=== PATIENT | female | born 1985 | race Caucasian/White ===

== ENCOUNTER 2022-11-02 17:40 | Emergency (ER) | payer OTHER, SELFPAY ==
[2022-11-02 17:46] VITALS: BP 119/75; PULSE 96; RESP 16; TEMP 36.8; O2SAT 99; BMI 32.0
--- NOTE | 2022-11-02 17:57 | CT_ITS ---
[address] [address] Patient Name: INES SKELTON MRN: [id number] date: 1985 Sex: F Assigned Patient Location: ER Current Patient Location: ER Accession/Order Number: [id number] Exam Date: 11/02/2022 18:27 Report Date: 11/02/2022 19:43 At the request of: IRIS ARTEAGA Procedure: CT abdomen pelvis w con EXAM: CT abdomen pelvis w con HISTORY: Right-sided abdominal pain. COMPARISON: 06/04/2015. TECHNIQUE: Enhanced helical acquisition obtained through the abdomen and the pelvis. FINDINGS: The visualized lung bases and pleural spaces are clear. Prior cholecystectomy. No significant biliary ductal dilatation. The liver, spleen, pancreas and the adrenal glands are unremarkable. No enlarged lymph nodes identified within the abdomen or the pelvis. Mild dilatation of the proximal two thirds of the right ureter. Stranding within the right hemipelvis which obscures the distal third of the right ureter. Mild urinary bladder wall thickening which may in part relate to partially decompressed status of the urinary bladder. The appendix is not definitively visualized. No secondary signs of acute appendicitis. No ascites or focal intraperitoneal fluid collections. CT/CT abdomen pelvis w con IMPRESSION: 1. Mild dilatation of the proximal two thirds of the right ureter. Stranding within the right hemipelvis which compares the distal third of the right ureter. Recommend correlation with pelvic ultrasonography to further define the right adnexa and the right ovary. 2. The appendix is not definitively visualized. No secondary signs of appendicitis are visualized. 3. Mild thickening of the urinary bladder wall which may in part relate to partially decompressed status of the urinary bladder. Recommend correlation with urinalysis. Electronically authenticated by: LELE FLORES Date: 11/02/2022 19:43
--- NOTE | 2022-11-02 17:58 | ED.ABDPAIN1 ---
Documented by User: HUMBERTO Cox 11/02/22 21:31 HPI - Abdominal Pain General Chief Complaint: Abdominal Pain Stated Complaint: FLANK PAIN Time Seen by Provider: 11/02/22 17:52 Source: patient and friend Mode of arrival: walk-in Limitations: no limitations History of Present Illness HPI narrative: 37-year-old female presents with right abdominal pain that she states is in between her right upper and right lower quadrant that is been intermittent for the past couple weeks, but today is persistent. Denies radiation of pain. Sitting up makes pain worse. Denies fever, back pain, dysuria, n/v/d, SOB or CP Related Data Home Medications Medication Instructions Recorded Confirmed albuterol sulfate 90 mcg/actuation 2 puff inhalation Q8H PRN 11/02/22 11/02/22 aerosol inhaler bronchospasm divalproex 250 mg tablet,extended 250 mg PO QDAY 11/02/22 11/02/22 release 24 hr gabapentin 600 mg tablet 600 mg PO Q8H 11/02/22 11/02/22 lurasidone 20 mg tablet 20 mg PO DAILY 11/02/22 11/02/22 multivitamin with folic acid 400 1 tab PO QDAY 11/02/22 11/02/22 mcg tablet (Daily-Vickey (with folic acid)) naltrexone 50 mg tablet 50 mg PO Q24H 11/02/22 11/02/22 prazosin 2 mg capsule 2 mg PO DAILY 11/02/22 11/02/22 ropinirole 0.5 mg tablet 0.5 mg PO QDAY 11/02/22 11/02/22 trazodone 50 mg tablet 150 mg PO .qhs 11/02/22 11/02/22 Previous Rx's Medication Instructions Recorded cephalexin 500 mg capsule 1,000 mg PO BID 10 days #40 caps 11/02/22 Allergies Allergy/AdvReac Type Severity Reaction Status Date / Time adhesive tape AdvReac Intermediate Rash Verified 11/02/22 17:50 ibuprofen [From Motrin] AdvReac Intermediate Hives Verified 11/02/22 17:50 Review of Systems ROS Status of ROS 10 or more systems reviewed and unremarkable except as noted in history and below PFSH PFSH Social History Smoking status: Current every day smoker Exam Narrative Exam Narrative: General: A&Ox3, no distress, talking in full an complete sentences skin: warm, dry, intact head: normocephalic, atraumatic eyes: EOMI nose: nares patent neck: supple, trachea midline respiratory: non-labored extremities: FROM x 4, strength +5/5 abd: soft, pain to the right mid lateral abdomen neuro: A&Ox3 psych: appropriate mood and affect, cooperative Constitutional Vital Signs, click to edit/add: Last Vital Signs Temp 98 F 11/02/22 21:48 Pulse 72 11/02/22 21:48 Resp 14 11/02/22 21:48 BP 111/78 11/02/22 19:55 Pulse Ox 97 11/02/22 21:48 O2 Del Method Room Air 11/02/22 21:48 Course Vital Signs Vital signs: Vital Signs Temperature 98.3 F 11/02/22 17:46 Pulse Rate 96 H 11/02/22 17:46 Respiratory Rate 16 11/02/22 17:46 Blood Pressure 119/75 11/02/22 17:46 Pulse Oximetry 99 11/02/22 17:46 Oxygen Delivery Method Room Air 11/02/22 17:46 Temperature 98 F 11/02/22 21:48 Pulse Rate 72 11/02/22 21:48 Respiratory Rate 14 11/02/22 21:48 Blood Pressure 111/78 11/02/22 19:55 Pulse Oximetry 97 11/02/22 21:48 Oxygen Delivery Method Room Air 11/02/22 21:48 MDM - Abdominal Pain MDM Narrative Medical decision making narrative: OARRS reviewed and patient is on Vivitrol and naltrexone. WBC 14. No other significant abnormalities. UA positive for nitrite, leukocytes WBC and bacteria. Final read of CT abdomen pelvis with contrast shows mild dilatation of the proximal two thirds of the right ureter with stranding in the right hemipelvis. Radiologist recommends pelvic ultrasound to further define the right adnexa and right ovary. She is given 1 g IV Rocephin. She will be discharged on Keflex. Due to the white count and stranding, she will be placed on dosage for possible early pyelonephritis. Per oil and gas exploration technician, no acute findings on ultrasound. F/u with PCP. afebrile, not tachypneic, not tachycardic, tolerating p.o., not hypoxic, non toxic appearing and ambulating at baseline and hemodynamically stable to be d/c. answered all questions. educated on SE of meds. pt in agreement with tx. educated when to return to ER. Lab Data Labs: Lab Results 11/02/22 Range/Units 18:11 WBC 14.0 H (4.0-11.0) 10^3/uL RBC 4.34 (4.20-5.40) 10^6/uL Hgb 13.4 (12.0-16.0) g/dL Hct 40.0 (36.0-48.0) % MCV 92.2 (81.0-99.0) fL MCH 30.9 (26.7-34.0) pg MCHC 33.5 (29.9-35.2) g/dL RDW 13.8 (11.0-15.0) % Plt Count 262 (150-450) 10^3/uL MPV 11.1 (9.5-13.5) fL Neut % (Auto) 71.9 (43.0-75.0) % Lymph % (Auto) 19.9 L (20.5-60.0) % [place] % (Auto) 6.8 (1.7-12.0) % Eos % (Auto) 0.6 L (0.9-7.0) % Baso % (Auto) 0.4 (0.2-2.0) % Neut # (Auto) 10.1 H (1.4-6.5) 10^3/uL Lymph # (Auto) 2.8 (1.2-3.8) 10^3/uL [place] # (Auto) 1.0 H (0.3-0.8) 10^3/uL Eos # (Auto) 0.1 (0.0-0.7) 10^3/uL Baso # (Auto) 0.1 (0.0-0.1) 10^3/uL Abs Immat Gran (auto) 0.05 H (0.00-0.03) 10^3/uL Imm/Tot Granulo (auto) 0.4 (0.0-0.5) % Sodium 139 (136-145) mmol/L Potassium 3.9 (3.5-5.1) mmol/L Chloride 104 (98-107) mmol/L Carbon Dioxide 29.1 (21.0-32.0) mmol/L Anion Gap 9.8 BUN 11.0 (7.0-18.0) mg/dL Creatinine 0.78 (0.55-1.02) mg/dL Est GFR ( Amer) >60 (>=60) Est GFR (Non-Af Amer) >60 (>=60) BUN/Creatinine Ratio 14.1 Glucose 87 (74-106) mg/dL Calcium 8.6 (8.5-10.1) mg/dL Magnesium 1.9 (1.8-2.4) mg/dL Total Bilirubin 0.1 L (0.2-1.0) mg/dL AST 14 L (15-37) U/L ALT 24 (14-59) U/L Alkaline Phosphatase 83 (46-116) U/L Total Protein 7.4 (6.4-8.2) g/dL Albumin 3.4 (3.4-5.0) g/dL Globulin 4.0 g/dL Albumin/Globulin Ratio 0.9 Urine Color Lt. yellow (YELLOW) Urine Clarity Clear (CLEAR) Urine pH 7.0 (5.0-9.0) Ur Specific [place] 1.020 (1.005-1.025) Urine Protein Negative (NEG/TRACE) mg/dL Urine Glucose (UA) Negative (NEGATIVE) mg/dL Urine Ketones Negative (NEGATIVE) mg/dL Urine Occult Blood Trace-i (NEGATIVE) Urine Nitrite Positive A (NEGATIVE) Urine Bilirubin Negative (NEGATIVE) Urine Urobilinogen 0.2 (0.2-1.0) EU/dL Ur Leukocyte Esterase Moderate A (NEGATIVE) Urine RBC 0-2 (0-2) #/HPF Urine WBC 50-75 A (NONE SEEN) #/HPF Ur Squamous Epith Cells Rare (NONE/RARE) #/LPF Urine Crystals None seen (None Seen) #/HPF Urine Bacteria Moderate A (NONE SEEN) #/HPF Urine Casts None seen (NONE SEEN) #/LPF Urine Mucus None seen (NONE SEEN) Ur Culture Indicated? Yes Discharge Plan Discharge Chief Complaint: Abdominal Pain Clinical Impression: UTI (urinary tract infection) Qualifiers: Urinary tract infection type: acute cystitis Hematuria presence: without hematuria Qualified Code(s): N30.00 - Acute cystitis without hematuria Patient Disposition: Home, Self-Care Time of Disposition Decision: 21:29 Condition: Good Mode of Transportation: Private Vehicle Prescriptions / Home Meds: New cephalexin 500 mg capsule 1,000 mg PO BID 10 Days Qty: 40 0RF No Action albuterol sulfate 90 mcg/actuation HFA aerosol inhaler 2 puff INHALATION Q8H PRN (Reason: bronchospasm) gabapentin 600 mg tablet 600 mg PO Q8H lurasidone 20 mg tablet 20 mg PO DAILY multivitamin with folic acid [Daily-Vickye (with folic acid)] 400 mcg tablet 1 tab PO QDAY naltrexone 50 mg tablet 50 mg PO Q24H prazosin 2 mg capsule 2 mg PO DAILY ropinirole 0.5 mg tablet 0.5 mg PO QDAY trazodone 50 mg tablet 150 mg PO .qhs divalproex 250 mg tablet extended release 24 hr 250 mg PO QDAY Instructions: Urinary Tract Infection in Women (ED) Stand Alone Forms: Portal Instructions Referrals: Physician,Non-Staff, MD [Primary Care Provider] - 1 week Discharge Date/Time: 11/02/22 21:50 Documented by User: Lamont Leigh MD 11/08/22 07:33 HPI - Abdominal Pain General Chief Complaint: Abdominal Pain Stated Complaint: FLANK PAIN Time Seen by Provider: 11/02/22 17:52 Related Data Home Medications Medication Instructions Recorded Confirmed albuterol sulfate 90 mcg/actuation 2 puff inhalation Q8H PRN 11/02/22 11/02/22 aerosol inhaler bronchospasm divalproex 250 mg tablet,extended 250 mg PO QDAY 11/02/22 11/02/22 release 24 hr gabapentin 600 mg tablet 600 mg PO Q8H 11/02/22 11/02/22 lurasidone 20 mg tablet 20 mg PO DAILY 11/02/22 11/02/22 multivitamin with folic acid 400 1 tab PO QDAY 11/02/22 11/02/22 mcg tablet (Daily-Vickey (with folic acid)) naltrexone 50 mg tablet 50 mg PO Q24H 11/02/22 11/02/22 prazosin 2 mg capsule 2 mg PO DAILY 11/02/22 11/02/22 ropinirole 0.5 mg tablet 0.5 mg PO QDAY 11/02/22 11/02/22 trazodone 50 mg tablet 150 mg PO .qhs 11/02/22 11/02/22 Previous Rx's Medication Instructions Recorded cephalexin 500 mg capsule 1,000 mg PO BID 10 days #40 caps 11/02/22 Allergies Allergy/AdvReac Type Severity Reaction Status Date / Time adhesive tape AdvReac Intermediate Rash Verified 11/02/22 17:50 ibuprofen [From Motrin] AdvReac Intermediate Hives Verified 11/02/22 17:50 PFSH PFS Social History Smoking status: Current every day smoker Exam Constitutional Vital Signs, click to edit/add: Last Vital Signs Temp 98 F 11/02/22 21:48 Pulse 72 11/02/22 21:48 Resp 14 11/02/22 21:48 BP 111/78 11/02/22 19:55 Pulse Ox 97 11/02/22 21:48 O2 Del Method Room Air 11/02/22 21:48 Course Vital Signs Vital signs: Vital Signs Temperature 98.3 F 11/02/22 17:46 Pulse Rate 96 H 11/02/22 17:46 Respiratory Rate 16 11/02/22 17:46 Blood Pressure 119/75 11/02/22 17:46 Pulse Oximetry 99 11/02/22 17:46 Oxygen Delivery Method Room Air 11/02/22 17:46 Temperature 98 F 11/02/22 21:48 Pulse Rate 72 11/02/22 21:48 Respiratory Rate 14 11/02/22 21:48 Blood Pressure 111/78 11/02/22 19:55 Pulse Oximetry 97 11/02/22 21:48 Oxygen Delivery Method Room Air 11/02/22 21:48 MDM - Abdominal Pain MDM Narrative Medical decision making narrative: OARRS reviewed and patient is on Vivitrol and naltrexone. WBC 14. No other significant abnormalities. UA positive for nitrite, leukocytes WBC and bacteria. Final read of CT abdomen pelvis with contrast shows mild dilatation of the proximal two thirds of the right ureter with stranding in the right hemipelvis. Radiologist recommends pelvic ultrasound to further define the right adnexa and right ovary. She is given 1 g IV Rocephin. She will be discharged on Keflex. Due to the white count and stranding, she will be placed on dosage for possible early pyelonephritis. Per oil and gas exploration technician, no acute findings on ultrasound. F/u with PCP. afebrile, not tachypneic, not tachycardic, tolerating p.o., not hypoxic, non toxic appearing and ambulating at baseline and hemodynamically stable to be d/c. answered all questions. educated on SE of meds. pt in agreement with tx. educated when to return to ER. I, Dr Leigh, have reviewed the above progress note and course of action in the ER; agree with the above. I have personally seen and evaluated this patient, gone over history and physical, and discussed disposition and treatment plan with the patient. Lab Data Labs: Lab Results 11/02/22 Range/Units 18:11 WBC 14.0 H (4.0-11.0) 10^3/uL RBC 4.34 (4.20-5.40) 10^6/uL Hgb 13.4 (12.0-16.0) g/dL Hct 40.0 (36.0-48.0) % MCV 92.2 (81.0-99.0) fL MCH 30.9 (26.7-34.0) pg MCHC 33.5 (29.9-35.2) g/dL RDW 13.8 (11.0-15.0) % Plt Count 262 (150-450) 10^3/uL MPV 11.1 (9.5-13.5) fL Neut % (Auto) 71.9 (43.0-75.0) % Lymph % (Auto) 19.9 L (20.5-60.0) % [place] % (Auto) 6.8 (1.7-12.0) % Eos % (Auto) 0.6 L (0.9-7.0) % Baso % (Auto) 0.4 (0.2-2.0) % Neut # (Auto) 10.1 H (1.4-6.5) 10^3/uL Lymph # (Auto) 2.8 (1.2-3.8) 10^3/uL [place] # (Auto) 1.0 H (0.3-0.8) 10^3/uL Eos # (Auto) 0.1 (0.0-0.7) 10^3/uL Baso # (Auto) 0.1 (0.0-0.1) 10^3/uL Abs Immat Gran (auto) 0.05 H (0.00-0.03) 10^3/uL Imm/Tot Granulo (auto) 0.4 (0.0-0.5) % Sodium 139 (136-145) mmol/L Potassium 3.9 (3.5-5.1) mmol/L Chloride 104 (98-107) mmol/L Carbon Dioxide 29.1 (21.0-32.0) mmol/L Anion Gap 9.8 BUN 11.0 (7.0-18.0) mg/dL Creatinine 0.78 (0.55-1.02) mg/dL Est GFR ( Amer) >60 (>=60) Est GFR (Non-Af Amer) >60 (>=60) BUN/Creatinine Ratio 14.1 Glucose 87 (74-106) mg/dL Calcium 8.6 (8.5-10.1) mg/dL Magnesium 1.9 (1.8-2.4) mg/dL Total Bilirubin 0.1 L (0.2-1.0) mg/dL AST 14 L (15-37) U/L ALT 24 (14-59) U/L Alkaline Phosphatase 83 (46-116) U/L Total Protein 7.4 (6.4-8.2) g/dL Albumin 3.4 (3.4-5.0) g/dL Globulin 4.0 g/dL Albumin/Globulin Ratio 0.9 Urine Color Lt. yellow (YELLOW) Urine Clarity Clear (CLEAR) Urine pH 7.0 (5.0-9.0) Ur Specific [place] 1.020 (1.005-1.025) Urine Protein Negative (NEG/TRACE) mg/dL Urine Glucose (UA) Negative (NEGATIVE) mg/dL Urine Ketones Negative (NEGATIVE) mg/dL Urine Occult Blood Trace-i (NEGATIVE) Urine Nitrite Positive A (NEGATIVE) Urine Bilirubin Negative (NEGATIVE) Urine Urobilinogen 0.2 (0.2-1.0) EU/dL Ur Leukocyte Esterase Moderate A (NEGATIVE) Urine RBC 0-2 (0-2) #/HPF Urine WBC 50-75 A (NONE SEEN) #/HPF Ur Squamous Epith Cells Rare (NONE/RARE) #/LPF Urine Crystals None seen (None Seen) #/HPF Urine Bacteria Moderate A (NONE SEEN) #/HPF Urine Casts None seen (NONE SEEN) #/LPF Urine Mucus None seen (NONE SEEN) Ur Culture Indicated? Yes Discharge Plan Discharge Chief Complaint: Abdominal Pain Clinical Impression: UTI (urinary tract infection) Qualifiers: Urinary tract infection type: acute cystitis Hematuria presence: without hematuria Qualified Code(s): N30.00 - Acute cystitis without hematuria Patient Disposition: Home, Self-Care Time of Disposition Decision: 21:29 Condition: Good Mode of Transportation: Private Vehicle Prescriptions / Home Meds: New cephalexin 500 mg capsule 1,000 mg PO BID 10 Days Qty: 40 0RF No Action albuterol sulfate 90 mcg/actuation HFA aerosol inhaler 2 puff INHALATION Q8H PRN (Reason: bronchospasm) gabapentin 600 mg tablet 600 mg PO Q8H lurasidone 20 mg tablet 20 mg PO DAILY multivitamin with folic acid [Daily-Vickey (with folic acid)] 400 mcg tablet 1 tab PO QDAY naltrexone 50 mg tablet 50 mg PO Q24H prazosin 2 mg capsule 2 mg PO DAILY ropinirole 0.5 mg tablet 0.5 mg PO QDAY trazodone 50 mg tablet 150 mg PO .qhs divalproex 250 mg tablet extended release 24 hr 250 mg PO QDAY Instructions: Urinary Tract Infection in Women (ED) Stand Alone Forms: Portal Instructions Referrals: Physician,Non-Staff, MD [Primary Care Provider] - 1 week Discharge Date/Time: 11/02/22 21:50
[2022-11-02 18:17] LABS: Basophils Absolute Auto 0.1 10^3/uL (0.0-0.1); Basophils Percent Auto 0.4 % (0.2-2.0); Eosinophils Absolute Auto 0.1 10^3/uL (0.0-0.7); Eosinophils Percent Auto 0.6 % (0.9-7.0); Hemoglobin 13.4 g/dL (12.0-16.0); Immature Granulocytes Abs Auto 0.05 10^3/uL (0.00-0.03); Immature Granulocytes Pct Auto 0.4 % (0.0-0.5); Lymphocytes Absolute Auto 2.8 10^3/uL (1.2-3.8); Lymphocytes Percent Auto 19.9 % (20.5-60.0); Mean Corpuscular HGB Conc 33.5 g/dL (29.9-35.2); Mean Corpuscular Hemoglobin 30.9 pg (26.7-34.0); Mean Corpuscular Volume 92.2 fL (81.0-99.0); Mean Platelet Volume 11.1 fL (9.5-13.5); Monocytes Percent Auto 6.8 % (1.7-12.0); Neutrophils Absolute Auto 10.1 10^3/uL (1.4-6.5); Neutrophils Percent Auto 71.9 % (43.0-75.0); Platelet Count 262 10^3/uL (150-450); Red Blood Count 4.34 10^6/uL (4.20-5.40); Red Cell Distribution Width 13.8 % (11.0-15.0)
[2022-11-02 18:34] LABS: Alanine Aminotransferase 24 U/L (14-59); Albumin Globulin Ratio 0.9; Albumin Level 3.4 g/dL (3.4-5.0); Alkaline Phosphatase 83 U/L (46-116); Anion Gap 9.8; Aspartate Amino Transferase 14 U/L (15-37); BUN Creatinine Ratio 14.1; Bilirubin Total 0.1 mg/dL (0.2-1.0); Calcium 8.6 mg/dL (8.5-10.1); Carbon Dioxide 29.1 mmol/L (21.0-32.0); Chloride 104 mmol/L (98-107); Estimated GFR (African America >60 (>=60); Estimated GFR (Non-African Ame >60 (>=60); Glucose 87 mg/dL (74-106); Magnesium 1.9 mg/dL (1.8-2.4); Potassium 3.9 mmol/L (3.5-5.1); Sodium 139 mmol/L (136-145); Total Protein 7.4 g/dL (6.4-8.2)
[2022-11-02 18:50] LABS: Bilirubin Urine NEGATIVE (NEGATIVE); Blood Urine TRACE-I (NEGATIVE); Clarity Urine CLEAR (CLEAR); Color Urine LT. YELLOW (YELLOW); Glucose Urine UA NEGATIVE (NEGATIVE); Ketones Urine NEGATIVE (NEGATIVE); Leukocyte Esterase Urine MODERATE (NEGATIVE); Nitrite Urine POSITIVE (NEGATIVE); Protein Urine NEGATIVE (NEG/TRACE); Urobilinogen Urine 0.2 EU/dL (0.2-1.0)
[2022-11-02 19:03] LABS: Cast Seen? NONE SEEN #/LPF (NONE SEEN); Squamous Epithelial Cell Urine RARE #/LPF (NONE/RARE)
[2022-11-02 19:04] LABS: WBC Urine 50-75 #/HPF (NONE SEEN)
[2022-11-02 19:05] LABS: Bacteria Urine MODERATE #/HPF (NONE SEEN); Crystals Seen? None Seen #/HPF (None Seen); Mucus Urine NONE SEEN (NONE SEEN); RBC Urine 0-2 #/HPF (0-2); Urine Culture Indicated YES
--- NOTE | 2022-11-02 19:31 | US_ITS ---
The [address] [address] Patient Name: INES SKELTON MRN: [id number] date: 1985 Sex: F Assigned Patient Location: ED.MAIN Current Patient Location: Accession/Order Number: [id number] Exam Date: 11/02/2022 20:34 Report Date: 11/02/2022 22:12 At the request of: IRIS ARTEAGA Procedure: US abdomen complete EXAM: US abdomen complete HISTORY: abd pain COMPARISON: 11/02/2022 TECHNIQUE: Standard abdominal ultrasound performed using Doppler interrogation FINDINGS: Dense liver suggesting fatty infiltration. The gallbladder has been removed. Pancreas not well-seen. Both kidneys are normal in size. Mild heterogeneity seen in the right kidney which may indicate underlying pyelonephritis Slightly thick-walled urinary bladder. Correlation with urinalysis advised. No aneurysm or ascites. US/US abdomen complete IMPRESSION: Dense liver suggesting mild fatty infiltration. Gallbladder has been removed. No hydronephrosis. Heterogeneity of the right kidney may reflect pyelonephritis. Correlation with urinalysis advised. Slightly thickened urinary bladder. Correlation with urinalysis advised as cystitis can have this appearance Electronically authenticated by: OTTO LEE Date: 11/02/2022 22:12
[2022-11-02] MEDS: CEFTRIAXONE 1,000 MG in 0.9 % SODIUM CHLORIDE 50 ML 100 MG IV (19:47)
[2022-11-02 19:55] VITALS: BP 111/78; PULSE 89; RESP 16; TEMP 36.8; O2SAT 99
[2022-11-02 21:48] VITALS: PULSE 72; RESP 14; TEMP 36.6; O2SAT 97
== END 2022-11-02 21:50 | disposition home or self-care (01) ==
PROVIDERS: Physician Assistant; Emergency Provider Emergency Medicine
DX: N30.00 Acute cystitis without hematuria (principal); F17.210 Nicotine dependence, cigarettes, uncomplicated; Z79.899 Other long term (current) drug therapy
CPT/HCPCS: 36415; 74177; 76700; 80053; 81001; 83735; 85025; 87086; 87150; 87186; 96365; 99285; Q9967